=== PATIENT | female | born 1960 | race Caucasian/White ===

== ENCOUNTER → 2017-09-21 | Outpatient (CLI) | payer OTHER, SELFPAY ==
[~2017-09-21] MED LIST: AMBIEN 10 MG TA10 MG PO; AMBIEN 5 MG TABL5 M1 PO; ASPIR 8181 MG PO; ASPIRIN325 PO; AUGMENTIN 875-1 EACH PO; AUGMENTIN 875875 MG PO; CENTRUM SILVER1 EAC4 PO; COLACE100 MG PO; FIBERCON625 M1 PO; IBUPROFEN 600600 M1 PO; MAG-AL PLUS XS30 ML PO; MAGNESIUM500 MG PO; MECLIZINE HCL12.5 MG PO; MILK OF MA2400 MG/10 PO; MIRALAX17 GM PO; MOBIC15 MG PO; MUCINEX TA600 MG/TA2 PO; NEURONTIN250 MG/5 M PER TUBE; NEURONTIN600 MG PO; OXYCODONE HCL 55 MG PO; PERCOCET PO; PHENERGAN 25 MG25 M1 PO; REQUIP 0.25 M0.25 M1 PO; TESSALON PERLE100 MG PO; TRAMADOL 50 MG50 MG PO; TURMERIC500 M2 PO; TYLENOL EXTRA500 MG PO; VERAPAMIL ER180 M1 PO; VISTARIL 25 MG25 M1 PO; VITAMIN B-1100 M1 PO; VITAMIN D1000 UNI2 PO; VITAMINC500 PO; ZOFRAN ODT4 MG PO
== END ==
LOC: M.MRI 16:15
DX: M17.11 Unilateral primary osteoarthritis, right knee (principal); M79.661 Pain in right lower leg; R22.41 Localized swelling, mass and lump, right lower limb; Z96.652 Presence of left artificial knee joint

== ENCOUNTER 2018-08-18 10:33 | Inpatient (IN) | payer OTHER ==
[~2018-08-18] VITALS: Ht 172.7 cm; Wt 127.9 kg
[2018-08-18] VITALS (26 sets, daily range): BP systolic 107–181; BP diastolic 62–105
--- NOTE | ~2018-08-18 | EEG ---
[address] [address] EEG STUDY REPORT Name: LIDA WHITLEY Room: [address] IN M.R.#: [id number] Admission: 08/18/18 Attend Phys: Marcos Moore MD Discharge: Date of : 62 Report #: [id number] THIS REPORT FOR: //name// CC: Marcos Mack DATE OF SERVICE: 08/22/2018 This patient's EEG was done for comparison. EEG was done by placing the electrode by standard 10-20 system of electrode placement. Both referential and sequential montages were used for recording. Background activity in this patient's EEG goes up to about 8 Hz and 30 microvolt. Photic stimulation is unremarkable. No active epileptiform activity was noticed. Triphasic waves appear to have disappeared. IMPRESSION: This patient's EEG continued to demonstrate finding consistent with encephalopathy, but appeared to have somewhat improved since last time. Clinical correlation is recommended. By: 0922 0947Aiden Perez MD /nt
--- NOTE | ~2018-08-18 | EEG ---
[address] [address] EEG STUDY REPORT Name: LIDA WHITLEY Room: [address] IN M.R.#: [id number] Admission: 08/18/18 Attend Phys: Marcos Moore MD Discharge: Date of : 62 Report #: [id number] THIS REPORT FOR: //name// CC: Marcos Mack DATE OF SERVICE: 08/20/2018 This patient is being evaluated for a cardiac arrest. EEG was done by placing the electrodes by standard 10-20 system of electrode placement. Both referential and sequential montages were used for recording. Background activity in this patient's EEG is about 4-5 Hz and 30 microvolts. Triphasic waves, which are frontally predominant is present. Photic stimulation is unremarkable. IMPRESSION: This is a severely abnormal EEG, which would be consistent with a diagnosis of encephalopathy. A well-defined cortical activity is present at the moment and the patient will need serial EEGs to prognosticate. Thank you very much for this referral. By: 1548 1754Pleroy Perez MD /nt
--- NOTE | ~2018-08-18 | CON ---
[address] [address] CONSULTATION Name: GUTIERREZLIDA E Room: [address] IN M.R.#: [id number] Admission: 08/18/18 Attend Phys: Marcos Moore MD Discharge: Date of : 62 Report #: [id number] THIS REPORT FOR: //name// CC: Marcos Mack DATE OF SERVICE: 08/18/2018 PRIMARY CARE PHYSICIAN: Dr. Franco. CHIEF COMPLAINT: Cardiac arrest. HISTORY OF PRESENT ILLNESS: The patient is a 58-year-old female who had a witnessed cardiac arrest at her home. Her who is upstairs heard her fall. 911 was immediately called and bystander CPR was initiated. By the time paramedics arrived, she was noted to be in a pulsus rhythm, ventricular fibrillation, and was cardioverted x1 into a sinus rhythm with judaism of pulse and blood pressure. She was breathing at that time and she was transferred on high flow oxygen and then was intubated when she was not waking up here in the Emergency Room at [facility]. She remained hemodynamically stable, but unresponsive. Her ECG on presentation did not show any dynamic ST-T wave abnormalities. Her and sister were interviewed. The patient has been under a lot of stress over the last week when she was taking care of her family member, whose just . However, other than feeling shortness of breath, she was not having chest pain or pressure and was not having any increasing weakness or fatigue or syncope or presyncope. PAST MEDICAL HISTORY: Significant for remote history of brain tumor resection with residual weakness and fatigue and chronic fibromyalgia, chronic fatigue, irritable bowel syndrome, degenerative joint disease, but she was not treated for diabetes. She is a nonsmoker. There is no documented history of congestive heart failure, cardiac rhythm abnormalities. HOME MEDICATIONS: Included ondansetron p.r.n., benzonatate p.r.n., zolpidem, ropinirole, gabapentin, and meclizine. ALLERGIES: She has allergies to HYDROCODONE with NONCONTRAST DYE. SOCIAL HISTORY: She is nonsmoking, . Does not drink. REVIEW OF SYSTEMS: Not obtainable, but as noted above, the aforementioned symptoms were not present. CHEST: She was not having chest discomfort. [place] [address] CONSULTATION Name: LIDA WHITLEY Room: [address]#: [id number] Admission: 08/18/18 Attend Phys: Marcos Moore MD Discharge: Date of : 62 Report #: [id number]. NEUROLOGIC: She was not having any seizure activities. MUSCULOSKELETAL: She has chronic joint pain. HEMATOLOGIC: No anemia. RENAL: No history of kidney failure. PHYSICAL EXAMINATION: VITAL SIGNS: On judaism, her blood pressure is actually elevated at 181/105. She weighs 230 pounds. Pulse is sinus rhythm, sinus tachycardia, O2 sat on the ventilator is 100%. HEENT: No evidence of trauma. ET tube is secure. Eyes, pupils are unresponsive. NECK: Supple. No jugular venous distention. CARDIOVASCULAR: Regular. I cannot hear a murmur. PULMONARY: Breath sounds are coarse bilaterally. There is no wheezing. ABDOMEN: Distended. It is soft. EXTREMITIES: Distal pulses are intact. Distal extremities are warm. NEUROLOGIC: Are not formally tested as noted above. LABORATORY DATA: Troponin I is 0.26. Glucose 170, BUN 21, sodium 141, potassium 4.1, and chloride is 106. Troponin I is 0.26. BNP is 43. Hemoglobin is 13. CT scan of the brain is pending. X-ray shows ET tube, which terminates over the mid to distal trachea in satisfactory position, borderline enlarged cardiac silhouette, but unchanged from her prior study and no pneumothorax, atelectasis, but no CHF. IMPRESSION: 1. Out of hospital cardiac arrest. 2. Ventricular fibrillation. 3. Respiratory failure. 4. Anoxic brain injury. At this point in time, supportive cardiovascular care will be instituted. Given her age and potential cardiovascular risk factors, I think she should be evaluated with an invasive evaluation. The risks and benefits of this procedure were described to the patient's family in lay terms. They elected to proceed. She will be started on a cooling protocol and Neurology consult will be initiated. Critical care time is 31 minutes. By: 1157 0147Umair Aden MD, FACC /nt
[~2018-08-18 10:33] MED LIST changes: -NEURONTIN250 MG/5 M PER TUBE; +NEURONTIN250 MG/5 M PO
[2018-08-18 11:09] LABS: ABSOLUTE BASOPHILS 0.1 thou/uL (0.0-0.2); ABSOLUTE EOSINOPHILS 0.2 thou/uL (0.0-0.7); ABSOLUTE LYMPHOCYTES 3.8 thou/uL (0.8-5.3); ABSOLUTE MONOCYTES 0.6 thou/uL (0.0-1.2); ABSOLUTE NEUTROPHILS 5.6 thou/uL (1.6-8.1); BASOPHILS 0.7 %; EOSINOPHILS 1.6 %; HEMATOCRIT 40.9 % (37.0-47.0); HEMOGLOBIN 13.2 gm/dL (12.0-15.0); LYMPHOCYTES 36.9 %; MCH 29.1 pg (26.0-34.0); MCHC 32.3 g/dL (28.0-37.0); MCV 90.1 fL (80.0-100.0); MONOCYTES 5.7 %; MPV 7.6 fl. (7.2-11.1); NUCLEATED RBCS 0 /100WBC; PLATELET COUNT* 319 thou/uL (150-400); POLYS 55.1 %; RBC 4.54 mil/uL (4.20-5.00); RDW-CV 14.4 % (10.5-14.5); WBC 10.2 thou/uL (4.0-11.0)
[2018-08-18 11:09] LABS: URINE BILIRUBIN NEGATIVE (Negative); URINE BLOOD TRACE (Negative); URINE CLARITY CLEAR; URINE COLOR YELLOW; URINE GLUCOSE-RANDOM TRACE (Negative); URINE KETONES NEGATIVE (Negative); URINE LEUKOCYTES-REFLEX NEGATIVE (Negative); URINE NITRITE-REFLEX NEGATIVE (Negative); URINE PROTEIN 3+ (Negative); URINE SPECIFIC GRAVITY 1.025 (1.005-1.030); URINE UROBILINOGEN 0.2 E.U./dl (0.2-1.0)
[2018-08-18 11:16] LABS: SQUAMOUS 4-10 Moderate /LPF (0-3)
[2018-08-18 11:21] LABS: APTT 23.5 Seconds (25.0-31.3)
[2018-08-18 11:23] LABS: BACTERIA-REFLEX None Seen /HPF (None Seen); CASTS None Seen /LPF (None Seen); MUCUS >6 Heavy strn/LPF (None Seen); URINE RBC None Seen /HPF (0-2); URINE WBC-REFLEX None Seen /HPF (0-5)
[2018-08-18 11:24] LABS: AMORPHOUS URATES Many /LPF (None Seen)
[2018-08-18 11:29] LABS: POTASSIUM 4.1 mmol/L (3.5-5.1); TROPONIN-I LEVEL 0.26 ng/mL (<0.06)
[2018-08-18 11:32] LABS: ALBUMIN 3.8 g/dL (3.4-5.0); MAGNESIUM 2.1 mg/dL (1.8-2.4); TOTAL BILIRUBIN 0.2 mg/dL (<0.1-1.0); TOTAL PROTEIN 7.1 g/dL (6.4-8.2)
[2018-08-18 14:28] LABS: PCO2 40.3 mmHg (35.0-45.0); pH 7.326 (7.340-7.450)
[2018-08-18 14:33] LABS: PO2 343.9 mmHg (75.0-100.0)
[2018-08-18 14:49] LABS: ANION GAP 10 mmol/L (7-16); BUN 23 mg/dL (7-18); CALCIUM 9.2 mg/dL (8.5-10.1); CHLORIDE 105 mmol/L (98-107); CO2 25 mmol/L (21-32); CREATININE 0.8 mg/dL (0.6-1.3); GLUCOSE 114 mg/dL (70-99); POTASSIUM 4.2 mmol/L (3.5-5.1); SODIUM 140 mmol/L (136-145)
[2018-08-18 14:52] LABS: TROPONIN-I LEVEL 2.96 ng/mL (<0.06)
[2018-08-18 15:33] LABS: CHOLESTEROL 288 mg/dL (<200); HDL CHOLESTEROL 62 mg/dL (>40); LDL CHOLESTEROL 182 mg/dL (<100); SERUM ASSESSMENT Clear; TC:HDL 4.6 Ratio (Not establshd); TRIGLYCERIDE 222 mg/dL (<150); VLDL 44 mg/dL (<40)
[2018-08-18 18:25] LABS: ABSOLUTE LYMPHOCYTES 1.5 thou/uL (0.8-5.3); ABSOLUTE MONOCYTES 0.8 thou/uL (0.0-1.2); ABSOLUTE NEUTROPHILS 11.1 thou/uL (1.6-8.1); BASOPHILS 0.3 %; EOSINOPHILS 0.1 %; HEMATOCRIT 38.8 % (37.0-47.0); HEMOGLOBIN 12.5 gm/dL (12.0-15.0); MCH 28.8 pg (26.0-34.0); MCHC 32.2 g/dL (28.0-37.0); MCV 89.3 fL (80.0-100.0); MONOCYTES 5.9 %; NUCLEATED RBCS 0 /100WBC; PLATELET COUNT* 319 thou/uL (150-400); POLYS 82.7 %; RBC 4.35 mil/uL (4.20-5.00); WBC 13.4 thou/uL (4.0-11.0)
[2018-08-18 18:52] LABS: CALCIUM 8.6 mg/dL (8.5-10.1); CK-MB MASS 8.8 ng/mL (<0.5-3.6); CREATININE 0.8 mg/dL (0.6-1.3); MAGNESIUM 2.1 mg/dL (1.8-2.4); PHOSPHORUS* 3.6 mg/dL (2.5-4.9); POTASSIUM 3.7 mmol/L (3.5-5.1)
[2018-08-18 18:55] LABS: TROPONIN-I LEVEL 2.6 ng/mL (<0.06)
[2018-08-18 19:28] LABS: APTT 23.6 Seconds (25.0-31.3); PROTIME 10.3 Seconds (9.20-11.50)
[2018-08-18 22:54] LABS: HEMATOCRIT 38.6 % (37.0-47.0); HEMOGLOBIN 12.6 gm/dL (12.0-15.0); MCHC 32.7 g/dL (28.0-37.0); MCV 88.5 fL (80.0-100.0); MPV 7.6 fl. (7.2-11.1); NUCLEATED RBCS 0 /100WBC; PLATELET COUNT* 284 thou/uL (150-400); RBC 4.36 mil/uL (4.20-5.00); RDW-CV 13.9 % (10.5-14.5); WBC 11.6 thou/uL (4.0-11.0)
[2018-08-18 23:08] LABS: PROTIME 10.2 Seconds (9.20-11.50)
[2018-08-18 23:20] LABS: CALCIUM 8.7 mg/dL (8.5-10.1); CREATININE 0.6 mg/dL (0.6-1.3); MAGNESIUM 2.1 mg/dL (1.8-2.4); PHOSPHORUS* 3.5 mg/dL (2.5-4.9); POTASSIUM 3.3 mmol/L (3.5-5.1)
[2018-08-18 23:26] LABS: ABSOLUTE LYMPHOCYTES 0.7 thou/uL (0.8-5.3); ABSOLUTE MONOCYTES 0.3 thou/uL (0.0-1.2); ABSOLUTE NEUTROPHILS 10.6 thou/uL (1.6-8.1); PLATELET ESTIMATE ADEQUATE
[2018-08-19] VITALS (59 sets, daily range): BP systolic 92–159; BP diastolic 57–85
[2018-08-19 02:49] LABS: ABSOLUTE BASOPHILS 0.1 thou/uL (0.0-0.2); ABSOLUTE LYMPHOCYTES 1.8 thou/uL (0.8-5.3); ABSOLUTE MONOCYTES 0.4 thou/uL (0.0-1.2); ABSOLUTE NEUTROPHILS 7.5 thou/uL (1.6-8.1); BASOPHILS 0.8 %; EOSINOPHILS 0.2 %; HEMATOCRIT 37.9 % (37.0-47.0); HEMOGLOBIN 12.6 gm/dL (12.0-15.0); LYMPHOCYTES 17.9 %; MCH 29.4 pg (26.0-34.0); MCHC 33.3 g/dL (28.0-37.0); MCV 88.5 fL (80.0-100.0); MONOCYTES 4.5 %; MPV 7.6 fl. (7.2-11.1); NUCLEATED RBCS 0 /100WBC; PLATELET COUNT* 281 thou/uL (150-400); POLYS 76.6 %; RBC 4.29 mil/uL (4.20-5.00); RDW-CV 14.3 % (10.5-14.5); WBC 9.8 thou/uL (4.0-11.0)
[2018-08-19 03:10] LABS: ALBUMIN 3.4 g/dL (3.4-5.0); CALCIUM 8.9 mg/dL (8.5-10.1); CREATININE 0.5 mg/dL (0.6-1.3); TOTAL BILIRUBIN 0.2 mg/dL (<0.1-1.0); TOTAL PROTEIN 6.4 g/dL (6.4-8.2)
[2018-08-19 03:30] LABS: TROPONIN-I LEVEL 0.87 ng/mL (<0.06)
[2018-08-19 04:21] LABS: CK-MB MASS 9.3 ng/mL (<0.5-3.6); MAGNESIUM 2.1 mg/dL (1.8-2.4); PHOSPHORUS* 2.9 mg/dL (2.5-4.9)
[2018-08-19 04:27] LABS: TROPONIN-I LEVEL 0.86 ng/mL (<0.06)
[2018-08-19 05:14] LABS: APTT 25.7 Seconds (25.0-31.3); PROTIME 10.1 Seconds (9.20-11.50)
[2018-08-19] MEDS ORDERED: BUTALB-APAP-CA1 EACH PO (07:03)
[2018-08-19] MEDS ORDERED: CYMBALTA60 MG PO (07:04)
[2018-08-19] MEDS ORDERED: OMEPRAZOLE40 MG PO (07:05)
[2018-08-19] MEDS ORDERED: ULTRAM 50MG TAB50 MG PO (07:06)
[2018-08-19] MEDS ORDERED: ZANAFLEX4 MG PO (07:07)
[2018-08-19] MEDS ORDERED: PHENERGAN 25 MG25 M1 PO ×2 (08:17→08:19)
--- NOTE | 2018-08-19 14:08 | EKG ---
[place] [address] ELECTROCARDIOGRAM REPORT Name: GUTIERREZLIDA E Room: [address] IN M.R.#: [id number] Admission: 08/18/18 Attend Phys: Marcos Moore MD Discharge: Date of : 62 Report #: [id number] THIS REPORT FOR: //name// [facility] ED Test Date: 2018-08-18 Test Time: 10:36:24 Pat Name: LIDA WHITLEY Department: Room: [facility] Gender: F Peanut Vendor: GILBERTO : 1960 Requested By: Beau Payan Order Number: [id number] MD: Umair Aden Measurements Intervals [place] Rate: 106 P: 81 KS: 145 QRS: 13 QRSD: 91 T: 40 QT: 364 QTc: 484 Interpretive Statements Sinus tachycardia Minimal ST depression, anterolateral leads Baseline wander in lead(s) I,III,aVR,aVL,V3,V4,V5,V6 Compared to ECG 04/10/2017 10:09:34 ST (T wave) deviation now present Sinus rhythm no longer present Electronically Signed On 08-19-2018 14:08:34 ON SITE NURSE by Umair Aden [email or web address] <ELECTRONICALLY SIGNED> By: Umair Aden MD, [facility] 08/19/18 1408 1036 1036 Umair Aden MD, [facility] /EPI
--- NOTE | 2018-08-19 16:29 | CARD ---
[facility] [address] [place] [address] CARDIAC CATH REPORT Name: LIDA WHITLEY Room: [address] IN .R.#: [id number] Admission: 08/18/18 Attend Phys: Marcos Moore MD Discharge: Date of : 62 Report #: [id number] THIS REPORT FOR: //name// APPROVED REPORT Study performed: 08/18/2018 11:38:35 Patient Details Patient Status: ED Room #: The patient is a 58 year-old female Event Personnel Art Mack Jewel Bearing Maker, Mariaelena Kate RN Prescriptionist, Kristi Torres RN Monitor, Vladimir Ritchie (R) Scrub Procedures Performed Left Heart Cath w/or w/o Coronaries Indication Arrhythmia, Out of hospital arrest. Risk Factors HypercholesterolemiaPhysical Activity, Hypertension Procedure Narrative The patient was brought emergently to the Cardiac Catheterization Laboratory and was prepped and draped in a sterile manner. The right femoral was infiltrated with 2% Lidocaine subcutaneous anesthesia. A [place]wood Sheath 4frX 10cm sheath was inserted into the right femoral artery. Coronary angiography was performed using coronary diagnostic catheters. The right coronary system was accessed and visualized with a JR4 catheter. The left coronary system was accessed and visualized with a JL4 catheter. The left ventricle was accessed and visualized with a PIGTAIL catheter. The patient tolerated the procedure well and there were no complications associated with the procedure. Dose: 854 mGy Contrast Type and Amount: Visipaque 120 ml Coronary Angiography The patient's coronary anatomy is right dominant. Diagnostic Cath Left Main This is a patent vessel, with no flow-limiting lesions. [address] [address] CARDIAC CATH REPORT Name: LIDA WHITLEY Room: [address] IN [facility]#: [id number] Admission: 08/18/18 Attend Phys: Marcos Moore MD Discharge: Date of : 62 Report #: [id number] LAD The proximal segment is a moderate to large size caliber vessel, patent with no flow-limiting lesions. The LAD tapers down to a moderate size caliber vessel in the midsegment, with no flow-limiting lesions. The distal LAD is a small-caliber vessel with moderate diffuse disease. Medical therapy is recommended. Diagonal 1 This is a small-caliber vessel, with no flow-limiting lesions. Diagonal 2 This is a small-caliber vessel, with no flow-limiting lesions. Circumflex This is a moderate size caliber vessel, supplies 2 obtuse marginal arteries. OM1 This is a moderate size caliber vessel, patent with no flow-limiting lesions. At the distal segment, it divides into 2 branches. OM2 This is a patent vessel, with no flow-limiting lesions. Right Coronary This is a dominant vessel, with mild disease in the midsegment. R PDA This is a patent vessel, with no flow-limiting lesions. RPLV This is a patent vessel, with no flow-limiting lesions. Left Ventriculography The left ventricle is normal in size with borderline contractility. The left ventricular ejection fraction is estimated to be 45-50%. There is mild hypokinesis of the mid to basal inferior segment. Hemodynamics The aortic pressure is 148/97 mmHg with a mean of 126 mmHg. The left ventricular pressure is 156/13 mmHg with a mean of mmHg. The left ventricular end diastolic pressure is 19 mmHg. Conclusion 1. There is mild to moderate disease in the distal LAD and mid RCA. 2. Right dominant system. 3. Low-normal versus mild LV dysfunction, EF 45-50%. 4. Recommend aggressive risk factor management. <ELECTRONICALLY SIGNED> By: Art Mack MD 08/19/18 1628 1628 1628Art Mack MD /INF
[2018-08-19 17:37] LABS: ABSOLUTE EOSINOPHILS 0.1 thou/uL (0.0-0.7); ABSOLUTE LYMPHOCYTES 1.4 thou/uL (0.8-5.3); ABSOLUTE MONOCYTES 0.4 thou/uL (0.0-1.2); ABSOLUTE NEUTROPHILS 5.4 thou/uL (1.6-8.1); BASOPHILS 0.4 %; EOSINOPHILS 1.2 %; HEMOGLOBIN 12.3 gm/dL (12.0-15.0); LYMPHOCYTES 18.9 %; MCH 29.3 pg (26.0-34.0); MCHC 33.2 g/dL (28.0-37.0); MCV 88.4 fL (80.0-100.0); MONOCYTES 5.5 %; MPV 7.8 fl. (7.2-11.1); NUCLEATED RBCS 0 /100WBC; PLATELET COUNT* 269 thou/uL (150-400); RBC 4.19 mil/uL (4.20-5.00); RDW-CV 14.8 % (10.5-14.5); WBC 7.2 thou/uL (4.0-11.0)
[2018-08-19 17:58] LABS: CALCIUM 8.9 mg/dL (8.5-10.1); CREATININE 0.6 mg/dL (0.6-1.3); MAGNESIUM 2.1 mg/dL (1.8-2.4); PHOSPHORUS* 2.8 mg/dL (2.5-4.9); POTASSIUM 4.2 mmol/L (3.5-5.1)
[2018-08-19 18:11] LABS: PROTIME 10.2 Seconds (9.20-11.50)
[2018-08-19 18:13] LABS: APTT 52.9 Seconds (25.0-31.3)
[2018-08-20] VITALS: BP 120/72
[2018-08-20 00:15] VITALS: BP 126/73
[2018-08-20 00:30] VITALS: BP 122/70
[2018-08-20 00:45] VITALS: BP 121/73
[2018-08-20 01:00] VITALS: BP 120/72
[2018-08-20 06:30] LABS: ABSOLUTE EOSINOPHILS 0.1 thou/uL (0.0-0.7); ABSOLUTE MONOCYTES 0.5 thou/uL (0.0-1.2); ABSOLUTE NEUTROPHILS 7.2 thou/uL (1.6-8.1); BASOPHILS 0.5 %; EOSINOPHILS 1.5 %; HEMATOCRIT 38.2 % (37.0-47.0); HEMOGLOBIN 12.6 gm/dL (12.0-15.0); LYMPHOCYTES 20.1 %; MCH 28.9 pg (26.0-34.0); MCHC 32.8 g/dL (28.0-37.0); MONOCYTES 4.9 %; MPV 8.1 fl. (7.2-11.1); NUCLEATED RBCS 0 /100WBC; PLATELET COUNT* 317 thou/uL (150-400); RBC 4.34 mil/uL (4.20-5.00); RDW-CV 14.8 % (10.5-14.5); WBC 9.8 thou/uL (4.0-11.0)
[2018-08-20 06:35] LABS: ALBUMIN 3.3 g/dL (3.4-5.0); CALCIUM 8.9 mg/dL (8.5-10.1); CREATININE 0.7 mg/dL (0.6-1.3); POTASSIUM 3.8 mmol/L (3.5-5.1); TOTAL BILIRUBIN 0.2 mg/dL (<0.1-1.0); TOTAL PROTEIN 6.4 g/dL (6.4-8.2)
--- NOTE | 2018-08-20 12:51 | CON ---
[facility] [address] [place] [address] CONSULTATION Name: LIDA WHITLEY Room: [address] IN M.R.#: [id number] Admission: 08/18/18 Attend Phys: Marcos Moore MD Discharge: Date of : 62 Report #: [id number] THIS REPORT FOR: //name// CC: Marcos Mack HISTORY OF PRESENT ILLNESS: The patient is a 58-year-old female who was in her home when her heard her fall to the ground. She was unresponsive. He initiated CPR immediately. When EMS arrived, the patient was in ventricular fibrillation. The patient was brought to the Emergency Room. She is now here in the ICU and is on the ventilator. There is concern for pulmonary embolus and consideration is being given to heparinizing the patient and taking her for a CT scan of the chest tomorrow. The patient is currently on a cooling protocol and on some light sedation, so a CT of the chest will be done tomorrow. The patient is my office patient. She has a history of acoustic neuroma and migraine headache. I was able to access my office records. The last time she was seen in my office was in 04/2017. In addition to being seen for headache for which she was treated with Fioricet, she also had fibromyalgia and was treated with duloxetine for that. In regards to the acoustic neuroma, this had been removed in the past. This acoustic neuroma was on the right side. PAST MEDICAL HISTORY: Acoustic neuroma, migraine headache, fibromyalgia, trigeminal neuralgia and gastroesophageal reflux. PAST SURGICAL HISTORY: Removal of a right acoustic neuroma, left knee surgery and bilateral carpal tunnel release. MEDICATIONS: As per the chart. ALLERGIES: None. NEUROLOGIC EXAMINATION: Cranial nerves: Pupils are pinpoint and unreactive. Oculocephalic and corneal reflexes are absent. There are no spontaneous movements of the extremities. Plantar responses are mute. IMPRESSION: The patient is currently on the cooling protocol and on some sedation. I have ordered an electroencephalogram for Monday morning and I have also ordered an MRI of the head, which can be done when she is more stable. At this point, there is concern for a pulmonary embolus, so the patient will be beginning heparin. Once she has warmed to normal body temperature she will be going for a CT scan, which will probably be on Monday as well. I reviewed my office notes and the patient had not been seen by me since 04/2017. At that point, she was seen for chronic headache, [place] [address] CONSULTATION Name: LIDA WHITLEY Room: [address]#: [id number] Admission: 08/18/18 Attend Phys: Marcos Moore MD Discharge: Date of : 62 Report #: [id number] trigeminal neuralgia. I had discussed with her the use of [id number] medication, which she had been taking too much of and had prescribed duloxetine [address] Perez will be following the patient as of Monday. <ELECTRONICALLY SIGNED> By: Carissa Goodson DO 08/20/18 1251 1151 0516Carissa Goodson DO /nt
--- NOTE | 2018-08-20 13:36 | 2DMMODE ---
[address] [address] D/M-MODE ECHOCARDIOGRAM Name: LIDA WHITLEY Room: [address] IN M.R.#: [id number] Admission: 08/18/18 Attend Phys: Marcos Moore, Discharge: Date of : 62 Date of Service: 08/20/18 1336 Report #: [id number] THIS REPORT FOR: //name// APPROVED REPORT Study performed: 08/20/2018 09:35:33 EXAM: Comprehensive 2D, Doppler, and color-flow Echocardiogram Patient Location: Bedside BSA: 2.36 HR: 73 bpm BP: 188/96 mmHg Other Information Study Quality: Fair Indications Chest Pain 2D Dimensions IVSd: 11.49 (7-11mm) LVOT Diam: 17.24 (18-24mm) LVDd: 38.07 mm PWd: 10.41 (7-11mm) Ascending Ao: 30.65 (22-36mm) LVDs: 28.08 (25-40mm) Aortic Root: 30.64 mm Volumes Left Atrial Volume (Systole) LA ESV Index: 11.40 mL/m2 Aortic Valve AoV Peak Eliu.: 1.61 m/s AO Peak Gr.: 10.33 mmHg LVOT Max P.88 mmHg AO Mean Gr.: 6.03 mmHg LVOT Mean P.61 mmHg LVOT Max V: 1.10 m/s AO V2 VTI: 25.03 cm LVOT Mean V: 0.76 m/s MIGUEL (VTI): 1.81 cm2 LVOT V1 VTI: 19.41 cm Mitral Valve E/A Ratio: 0.88 MV Decel. Time: 119.14 ms MV E Max Eliu.: 0.78 m/s MV PHT: 34.55 ms MVA (PHT): 6.37 [place]2 [place] [address] 2 D/M-MODE ECHOCARDIOGRAM Name: LIDA WHITLEY Room: [address] IN [facility].#: [id number] Admission: 08/18/18 Attend Phys: Marcos Moore, Discharge: Date of : 62 Date of Service: 08/20/18 1336 Report #: [id number] TDI E/Lateral E': 6.00 E/Medial E': 5.20 Medial E' Eliu.: 0.15 m/s Lateral E' Eliu.: 0.13 m/s Pulmonary Valve PV Peak Eliu.: 1.36 m/s PV Peak Gr.: 7.36 mmHg Tricuspid Valve RAP Estimate: 5.00 mmHg TR Peak Gr.: 29.77 mmHg RVSP: 34.77 mmHg PA Pressure: 34.77 mmHg Left Ventricle The left ventricle is normal size. There is normal LV segmental wall motion. There is normal left ventricular wall thickness Left ventricular systolic function is hyperdynamic. LVEF is 65-70%. Right Ventricle The right ventricle is normal size. The right ventricular systolic function is normal. Atria The left atrium size is normal. The right atrium size is normal. Aortic Valve The aortic valve is normal in structure. No aortic regurgitation is present. There is no aortic valvular stenosis. Mitral Valve Mild mitral annular calcification. Trace mitral regurgitation. No evidence of mitral valve stenosis. Tricuspid Valve The tricuspid valve is normal in structure. Trace tricuspid regurgitation. Pulmonic Valve The pulmonary valve is normal in structure. There is no pulmonic valvular regurgitation. Great Vessels The aortic root is normal in size. IVC [place] [address] 2 D/M-MODE ECHOCARDIOGRAM Name: LIDA WHITLEY Room: [address] IN [facility]#: [id number] Admission: 08/18/18 Attend Phys: Marcos Moore, Discharge: Date of : 62 Date of Service: 08/20/18 1336 Report #: [id number] Pericardium There is no pericardial effusion. <Conclusion> The left ventricle is normal size. There is normal left ventricular wall thickness Left ventricular systolic function is hyperdynamic. LVEF is 65-70%. The right ventricle is normal size. The right ventricular systolic function is normal. The left atrium size is normal. The aortic valve is normal in structure. Mild mitral annular calcification. Trace mitral regurgitation. The tricuspid valve is normal in structure. There is no pericardial effusion. There is normal LV segmental wall motion. <ELECTRONICALLY SIGNED> By: Ryan Bruce MD, FACC 08/20/18 1336 1336 1336 Ryan Bruce MD, FACC /INF
[2018-08-21] VITALS (23 sets, daily range): BP systolic 86–156; BP diastolic 45–84
[2018-08-21 05:27] LABS: HEMATOCRIT 35.6 % (37.0-47.0); HEMOGLOBIN 11.5 gm/dL (12.0-15.0); MCH 28.9 pg (26.0-34.0); MCHC 32.4 g/dL (28.0-37.0); MCV 89.1 fL (80.0-100.0); NUCLEATED RBCS 0 /100WBC; PLATELET COUNT* 305 thou/uL (150-400); RDW-CV 14.9 % (10.5-14.5); WBC 12.5 thou/uL (4.0-11.0)
[2018-08-21 05:37] LABS: ALBUMIN 2.9 g/dL (3.4-5.0); CALCIUM 8.9 mg/dL (8.5-10.1); CREATININE 0.8 mg/dL (0.6-1.3); MAGNESIUM 1.9 mg/dL (1.8-2.4); POTASSIUM 4.5 mmol/L (3.5-5.1); TOTAL BILIRUBIN 0.2 mg/dL (<0.1-1.0); TOTAL PROTEIN 6.3 g/dL (6.4-8.2)
[2018-08-21 05:46] LABS: PHOSPHORUS* 4.6 mg/dL (2.5-4.9)
[2018-08-21 06:46] LABS: ABSOLUTE LYMPHOCYTES 0.5 thou/uL (0.8-5.3); ABSOLUTE MONOCYTES 0.1 thou/uL (0.0-1.2); ABSOLUTE NEUTROPHILS 11.9 thou/uL (1.6-8.1); ANISOCYTOSIS 1+; PLATELET ESTIMATE ADEQUATE; POIKILOCYTOSIS 1+
[2018-08-22] VITALS (20 sets, daily range): BP systolic 141–177; BP diastolic 80–103
[2018-08-22 04:42] LABS: ABSOLUTE BASOPHILS 0.1 thou/uL (0.0-0.2); ABSOLUTE LYMPHOCYTES 1.4 thou/uL (0.8-5.3); ABSOLUTE MONOCYTES 0.6 thou/uL (0.0-1.2); ABSOLUTE NEUTROPHILS 11.4 thou/uL (1.6-8.1); BASOPHILS 0.8 %; HEMATOCRIT 36.7 % (37.0-47.0); HEMOGLOBIN 12.1 gm/dL (12.0-15.0); LYMPHOCYTES 10.5 %; MCH 29.4 pg (26.0-34.0); MCHC 32.9 g/dL (28.0-37.0); MCV 89.3 fL (80.0-100.0); MONOCYTES 4.4 %; MPV 7.9 fl. (7.2-11.1); NUCLEATED RBCS 0 /100WBC; PLATELET COUNT* 307 thou/uL (150-400); POLYS 84.3 %; RBC 4.11 mil/uL (4.20-5.00); WBC 13.5 thou/uL (4.0-11.0)
[2018-08-22 05:20] LABS: ALBUMIN 3.1 g/dL (3.4-5.0); CALCIUM 8.9 mg/dL (8.5-10.1); CREATININE 0.8 mg/dL (0.6-1.3); MAGNESIUM 2.5 mg/dL (1.8-2.4); TOTAL BILIRUBIN 0.4 mg/dL (<0.1-1.0); TOTAL PROTEIN 6.9 g/dL (6.4-8.2)
--- NOTE | 2018-08-22 07:33 | CON ---
[address] [address] CONSULTATION Name: GUTIERREZLIDA Chase Room: [address] IN M.R.#: [id number] Admission: 08/18/18 Attend Phys: Marcos Moore MD Discharge: Date of : 62 Report #: [id number] THIS REPORT FOR: //name// CC: Marcos Mack DATE OF SERVICE: 08/19/2018 NEW PATIENT EVALUATION REASON FOR CONSULTATION: Acute respiratory failure, code ICE post arrest. HISTORY OF PRESENT ILLNESS: The patient was brought to the ED after she was unresponsive. She is 58 years old and was found to be pulseless, was not breathing. Family started chest compression. EMS arrived and she was found to be pulseless and had ventricular fibrillation. Subsequently, she was shocked and transferred for further care. EMS reports downtime from the records 5-10 minutes. According to the family who was available at the bedside, the patient did not have any change recently. No chest pain. Had history of intermittent dizziness. Currently, she is on code ICE. She had cardiac catheterization done. She is currently intubated with 35% FiO2. PAST MEDICAL HISTORY: Remote history of brain tumor, post resection; chronic pain; irritable bowel and degenerative joint disease. SOCIAL HISTORY: Nonsmoker, no alcohol. REVIEW OF SYSTEMS: As above, history of intermittent dizziness, history of hip pain, taking oxycodone 3-4 times a week per family. Otherwise, family denies any previous history of chest pain. As above, otherwise limited, obtained from family, records and nursing and physicians. HOME MEDICATIONS: Reviewed, including ropinirole, gabapentin and Ambien. ALLERGIES: HYDROCODONE. PHYSICAL EXAMINATION: GENERAL: On examination, the patient is sedated. She is on . She is on Versed and propofol. VITAL SIGNS: She has been afebrile since admission, currently hypothermic, with the hypothermia protocol. Pulse is 61, respiratory rate is riding the vent and blood pressure is 103/67. HEAD AND NECK: Neck is supple. Oral mucosa clear. Eyes anicteric. CHEST: Equal and clear to auscultation. CARDIOVASCULAR: Regular [place] [address] CONSULTATION Name: LIDA WHITLEY Room: [address] IN [facility]#: [id number] Admission: 08/18/18 Attend Phys: Marcos Moore MD Discharge: Date of : 62 Report #: [id number] ABDOMEN: Soft, nontender. EXTREMITIES: No edema. LABORATORY DATA: Arterial blood gas, pH of 7.3, pCO2 of 40 and pO2 of 343, this is on 100% tune up mechanic, tidal volume of 550, PEEP of 5 and rate of 16. ASSESSMENT AND PLAN: 1. Cardiac arrest, on code ICE. The patient underwent cardiac catheterization. Her troponin was elevated at 0.86. Lactic acid was 1.4. Creatinine 0.5. 2. Acute respiratory failure. We will await for the cardiac catheterization to be weaned and then we will proceed with weaning trial. I discussed with nursing at this time to wean Versed and the patient may need intermittent fentanyl, with a history of previous pain. Critical care time taking care of the patient was 40 minutes. <ELECTRONICALLY SIGNED> By: Vladimir Goldstein MD 08/22/18 0733 1020 2317Asem Sin Guerrero MD /nt
[2018-08-22 15:34] LABS: BE -1.6 mmol/L (-2 to +3); PCO2 38.9 mmHg (35.0-45.0); PO2 108.6 mmHg (75.0-100.0); pH 7.391 (7.340-7.450)
[2018-08-23] VITALS (13 sets, daily range): BP systolic 135–181; BP diastolic 70–93
[2018-08-23 03:53] LABS: HEMATOCRIT 34.7 % (37.0-47.0); HEMOGLOBIN 11.4 gm/dL (12.0-15.0); MCH 29.1 pg (26.0-34.0); MCHC 32.8 g/dL (28.0-37.0); MCV 88.7 fL (80.0-100.0); MPV 7.8 fl. (7.2-11.1); RBC 3.91 mil/uL (4.20-5.00); RDW-CV 14.2 % (10.5-14.5); WBC 11.4 thou/uL (4.0-11.0)
[2018-08-23 04:10] LABS: CALCIUM 8.8 mg/dL (8.5-10.1); CREATININE 0.7 mg/dL (0.6-1.3); MAGNESIUM 2.4 mg/dL (1.8-2.4)
[2018-08-23 04:11] LABS: POTASSIUM 3.5 mmol/L (3.5-5.1)
[2018-08-23 06:29] LABS: PCO2 46.4 mmHg (35.0-45.0)
[2018-08-23 06:31] LABS: PO2 143.4 mmHg (75.0-100.0)
[2018-08-23 12:10] LABS: BE 0.6 mmol/L (-2 to +3); PCO2 38.7 mmHg (35.0-45.0); pH 7.426 (7.340-7.450)
[2018-08-23 12:12] LABS: PO2 138.5 mmHg (75.0-100.0)
[2018-08-24] VITALS (9 sets, daily range): BP systolic 129–170; BP diastolic 50–91
[2018-08-24 04:20] LABS: HEMATOCRIT 33.3 % (37.0-47.0); HEMOGLOBIN 10.9 gm/dL (12.0-15.0); MCHC 32.7 g/dL (28.0-37.0); MCV 88.7 fL (80.0-100.0); MPV 7.5 fl. (7.2-11.1); RBC 3.75 mil/uL (4.20-5.00); RDW-CV 14.1 % (10.5-14.5); WBC 12.8 thou/uL (4.0-11.0)
[2018-08-24 04:28] LABS: CALCIUM 8.5 mg/dL (8.5-10.1); CREATININE 0.6 mg/dL (0.6-1.3); MAGNESIUM 2.1 mg/dL (1.8-2.4); POTASSIUM 3.2 mmol/L (3.5-5.1)
[2018-08-25 04:00] VITALS: BP 139/79
[2018-08-25 05:21] LABS: HEMATOCRIT 33.8 % (37.0-47.0); HEMOGLOBIN 11.2 gm/dL (12.0-15.0); MCH 29.4 pg (26.0-34.0); MCHC 33.3 g/dL (28.0-37.0); MCV 88.3 fL (80.0-100.0); MPV 7.7 fl. (7.2-11.1); RBC 3.83 mil/uL (4.20-5.00); WBC 12.3 thou/uL (4.0-11.0)
[2018-08-25 06:01] LABS: ALBUMIN 3.1 g/dL (3.4-5.0); CALCIUM 8.9 mg/dL (8.5-10.1); CREATININE 0.6 mg/dL (0.6-1.3); POTASSIUM 3.2 mmol/L (3.5-5.1); TOTAL BILIRUBIN 0.4 mg/dL (<0.1-1.0); TOTAL PROTEIN 6.4 g/dL (6.4-8.2)
[2018-08-25 08:00] VITALS: BP 152/90
[2018-08-25 12:00] VITALS: BP 155/80
[2018-08-25 16:06] VITALS: BP 153/77
[2018-08-25 20:00] VITALS: BP 142/71
[2018-08-26] VITALS: BP 169/92
[2018-08-26 04:00] VITALS: BP 147/81
[2018-08-26 04:57] LABS: HEMATOCRIT 34.2 % (37.0-47.0); HEMOGLOBIN 11.3 gm/dL (12.0-15.0); MCH 28.9 pg (26.0-34.0); MCHC 32.9 g/dL (28.0-37.0); MPV 7.5 fl. (7.2-11.1); RBC 3.89 mil/uL (4.20-5.00); RDW-CV 14.1 % (10.5-14.5); WBC 13.5 thou/uL (4.0-11.0)
[2018-08-26 05:17] LABS: CALCIUM 8.6 mg/dL (8.5-10.1); CREATININE 0.7 mg/dL (0.6-1.3); MAGNESIUM 2.1 mg/dL (1.8-2.4); POTASSIUM 3.2 mmol/L (3.5-5.1); TOTAL BILIRUBIN 0.5 mg/dL (<0.1-1.0); TOTAL PROTEIN 6.4 g/dL (6.4-8.2)
[2018-08-26 08:00] VITALS: BP 147/81; BP 149/82
[2018-08-26 12:01] VITALS: BP 172/93
[2018-08-26] MEDS ORDERED: AMOXIL 875 MG875 M1 PO (14:25)
[2018-08-26] MEDS ORDERED: LISINOPRIL5 MG PO (14:26)
[2018-08-26] MEDS ORDERED: COREG6.25 MG PO (14:29)
[2018-08-26] MEDS ORDERED: ASPIR-TRIN325 MG PO (14:35)
[2018-08-26] MEDS ORDERED: ATORVASTATIN CA40 MG PO (14:38)
[2018-08-26] MEDS ORDERED: MIRALAX17 GM PO (15:19)
[2018-08-26] MEDS ORDERED: IBUPROFEN 600600 M1 PO (15:22)
[2018-08-26 15:56] VITALS: BP 172/93
[2018-08-26 16:25] VITALS: BP 172/93
[2018-08-26] MEDS ORDERED: COLACE100 MG PO (16:54)
--- NOTE | 2018-08-27 07:56 | CON ---
[facility] [address] [place] [address] CONSULTATION Name: GUTIERREZLIDA Stone Room: [address] M.R.#: [id number] Admission: 08/18/18 Attend Phys: Marcos Moore MD Discharge: 08/26/18 Date of : 62 Report #: [id number] THIS REPORT FOR: //name// CC: Marcos Mack DATE OF SERVICE: 08/24/2018 TYPE OF REPORT: Infectious disease consultation. ATTENDING PHYSICIAN: Cyrus Del Valle M.D. REASON FOR EVALUATION: Aspiration pneumonitis. HISTORY OF PRESENT ILLNESS: Chart reviewed, the patient examined. This is a 58-year-old, in extremis, presented to the Emergency Room post-cardiopulmonary arrest on 08/19/2018 and required emergent intubation. She was in Intensive Care Unit for a suspicion of aspiration pneumonitis. She was placed on empiric therapy. Blood cultures were collected, although there was no sputum, it was far more sterile. She had developed bilateral lower lobe atelectasis versus infiltrates and concern about aspiration. She eventually was weaned off mechanical ventilatory support. She is now on 2 liters oxygen per nasal cannula. She has a persistent nonproductive cough. She has generally markedly improved mental status. She has had some low-grade temperature elevations in the 99-100 range. Initially was on piperacillin-tazobactam. This was switched to Unasyn over the course of the last 24-36 hours. ALLERGIES: To HYDROCODONE. CURRENT MEDICATIONS: Include phenazopyridine, methylprednisolone, Unasyn, atorvastatin, carvedilol, aspirin, enoxaparin and pantoprazole. PAST MEDICAL HISTORY: History of brain surgery, renal lithiasis, irritable bowel syndrome, fibromyalgia, chronic fatigue, vertigo, history of migraines, Kan's palsy, status post carpal tunnel surgery, as well as arthroscopic knee surgery. SOCIAL HISTORY: Nonsmoker. No ethanol. FAMILY HISTORY: Noncontributory. REVIEW OF SYSTEMS: She denies any significant gastrointestinal related complaints at this point. No nausea or diarrhea, otherwise unremarkable. A 10-point review of systems otherwise noted [place] [address] CONSULTATION Name: LIDA WHITLEY Room: [address]#: [id number] Admission: 08/18/18 Attend Phys: Marcos Moore MD Discharge: 08/26/18 Date of : 62 Report #: [id number] PHYSICAL EXAMINATION: GENERAL: She is alert and cooperative. She has some mild delay in her responses. She appears to be generally oriented, appears to be in kpju-ny-fuoieobr distress. VITAL SIGNS: Temperature 99.3, pulse 84, respirations 13, blood pressure 153/66. HEENT: Normocephalic. Extraocular muscles intact. NECK: Supple. LUNGS: Few scattered basilar crackles. HEART: Regular. I do not appreciate a murmur. ABDOMEN: Mildly distended, soft, nontender. Distal lower extremities have trace edema. GENITOURINARY: Deferred. RECTAL: Deferred. LABORATORY DATA: Most recent electrolytes: Sodium 143, potassium 3.2, chloride 108, bicarbonate is 28, anion gap of 7, BUN and creatinine 29 and 0.6, glucose 97. Estimated GFR 103. CBC: White count is 12.8, H and H 10.9 and 33.3 and platelets of 308. Blood cultures collected on the 2nd are sterile thus far. Most recent ABG from yesterday pH 7.426, pCO2 of 38.7, pO2 of 138.5 on 4 liters nasal cannula. RADIOLOGICAL DATA: Chest x-ray, basilar atelectasis versus infiltrate, left greater than right. ASSESSMENT: Pneumonitis in the setting of post-cardiopulmonary arrest. She has actually made a remarkable recovery. She has had some low-grade temperature elevations. It is really difficult to know if this is indeed due to infectious cause. She is on Unasyn. Seemingly parameters show improvement. We will continue this. For the next 24-48 hours if she does clinically increase her activity, try to wean off support. We will monitor expectantly. <ELECTRONICALLY SIGNED> By: Hernandez Fonseca MD 08/27/18 0756 1319 [id number] Fonseca MD /nt
== END 2018-08-26 16:30 | disposition home health service (06) | DRG 870 ==
LOC: M.ERS 10:33 → M.TBA-ER 11:28 → M.ICU 11:28 → M.TBA-CV 11:52 → M.ICU 12:06 → M.2W 08-24 13:56
PROVIDERS: Emergency Medicine Emergency Medical Services; Family Medicine; Internal Medicine; Internal Medicine Critical Care Medicine; Internal Medicine Pulmonary Disease; ADMIT Internal Medicine
PROC: 0BH17EZ Insertion of Endotracheal Airway into Trachea, Via Natural or Artificial Opening (ICD-10-PCS; principal; 2018-08-18)
PROC: 5A1955Z Respiratory Ventilation, Greater than 96 Consecutive Hours (ICD-10-PCS; principal; 2018-08-18)
PROC: B2151ZZ Fluoroscopy of Left Heart using Low Osmolar Contrast (ICD-10-PCS; 2018-08-19)
PROC: 4A023N7 Measurement of Cardiac Sampling and Pressure, Left Heart, Percutaneous Approach (ICD-10-PCS; 2018-08-19)
PROC: B2111ZZ Fluoroscopy of Multiple Coronary Arteries using Low Osmolar Contrast (ICD-10-PCS; 2018-08-19)
PROC: 02HV33Z Insertion of Infusion Device into Superior Vena Cava, Percutaneous Approach (ICD-10-PCS; 2018-08-21)
DX: A41.9 Sepsis, unspecified organism (principal); J96.01 Acute respiratory failure with hypoxia; J69.0 Pneumonitis due to inhalation of food and vomit; I46.9 Cardiac arrest, cause unspecified; I49.01 Ventricular fibrillation; I21.4 Non-ST elevation (NSTEMI) myocardial infarction; G93.1 Anoxic brain damage, not elsewhere classified; J98.11 Atelectasis; Z68.41 Body mass index [BMI] 40.0-44.9, adult; Z96.652 Presence of left artificial knee joint; M79.7 Fibromyalgia; M19.90 Unspecified osteoarthritis, unspecified site; G43.909 Migraine, unspecified, not intractable, without status migrainosus; K21.9 Gastro-esophageal reflux disease without esophagitis; I25.10 Atherosclerotic heart disease of native coronary artery without angina pectoris; I10 Essential (primary) hypertension; E87.6 Hypokalemia; E66.01 Morbid (severe) obesity due to excess calories; D64.9 Anemia, unspecified; H70.90 Unspecified mastoiditis, unspecified ear; G31.84 Mild cognitive impairment of uncertain or unknown etiology; M50.322 Other cervical disc degeneration at C5-C6 level; G47.33 Obstructive sleep apnea (adult) (pediatric); E78.5 Hyperlipidemia, unspecified; G62.9 Polyneuropathy, unspecified; K58.9 Irritable bowel syndrome, unspecified; Z87.442 Personal history of urinary calculi; Z79.899 Other long term (current) drug therapy; Z88.8 Allergy status to other drugs, medicaments and biological substances

== ENCOUNTER → 2018-12-04 | Outpatient (CLI) | payer OTHER ==
[~2018-12-04] MED LIST changes: +AMOXIL 875 MG875 M1 PO; +ASPIR-TRIN325 MG PO; +ATORVASTATIN CA40 MG PO; +BUTALB-APAP-CA1 EACH PO; +COREG6.25 MG PO; +CYMBALTA60 MG PO; +LISINOPRIL5 MG PO; +OMEPRAZOLE40 MG PO; +ULTRAM 50MG TAB50 MG PO; +ZANAFLEX4 MG PO
== END ==
LOC: M.ULTRA 07:30
DX: R16.0 Hepatomegaly, not elsewhere classified (principal)

== ENCOUNTER → 2019-01-11 | Day surgery (SDC) | payer OTHER ==
[~2019-01-11] MED LIST changes: +ANTIVERT25 MG PO; +CLARITIN10 MG PO; +EXCEDRIN CAPLE1 EACH PO; +LIPITOR40 MG PO; +NEURONTIN 300300 M1 PO; +TOPAMAX 25 MG T25 M1 PO; +TYLENOL325 MG PO
--- NOTE | ~2019-01-11 | PROC ---
[address] [address] PROCEDURE REPORT Name: LIDA WHITLEY Room: [facility] M.R.#: [id number] Admission: 01/11/19 Attend Phys: Jewels Lemon MD Discharge: Date of : 62 Report #: [id number] THIS REPORT FOR: //name// For GI report, please see the Provation report in Perceptive 7 content. By: 1154Medical Records Staff LUCILLE /MARILIN
--- NOTE | 2019-01-14 16:06 | PATH ---
[facility] [address] [place] [address] PATHOLOGY RPT PROCEDURE Name: GUTIERREZBEBE MARYJANE Room: [facility].Lrudes.#: [id number] Admission: 01/11/19 Date of : 62 Discharge: Report #: [id number] Path Case #: [id number] [facility] Accession Number: [id number] . 01 Material submitted: . PART A: esophagus - ESOPHAGEAL BIOPSIES HX BARRETTS PART B: stomach - GASTRIC BODY. Modifiers: body . 01 Clinical history: . Amezcua's esophagus, epigastric pain, nausea and vomiting . 02 Diagnosis: A. 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 - There is no evidence of dysplasia or malignancy. - See comment. . B. Gastric "gastric biopsy": - Mild chronic reactive gastropathy. - The immunoperoxidase stain for Helicobacter pylori is negative. LB/01/14/2019 . 02 Comment: This case is also reviewed by Dr. Lacy Lantigua. (SHA/db; 01/14/2019) . 02 Electronically signed: . Renzo Damon MD, Pathologist NPI- [id number] . 01 Gross description: . A. Received in formalin labeled "Bebe Stephens, esophageal biopsy Hx Amezcua's," and additionally labeled on the requisition as "biopsies," are 2 segments of birmingham soft tissue measuring 1.0 x 0.3 x 0.2 cm in aggregate dimensions and ranging from 0.5 to 0.6 cm in maximum dimension. The specimen is submitted entirely in cassette A1. . B. Received in formalin labeled "Bebe Stephens, gastric biopsy," are 2 segments of birmingham soft tissue measuring 1.1 x 0.4 x 0.3 cm in aggregate dimensions and ranging from 0.5 to 0.6 cm in maximum dimension. The specimen is submitted entirely in cassette B1. (TSD; 01/11/2019) TOB/TOB . 02 Pathologist provided ICD-10: K22.70, K21.0, K31.9 . [address] [place] [address] PATHOLOGY RPT PROCEDURE Name: BEBE STEPHENS MARYJANE Room: [facility].#: [id number] Admission: 01/11/19 Date of : 62 Discharge: Report #: [id number] Path Case #: [id number] CPT . 572682, [id number], [id number] Specimen Comment: A courtesy copy of this report has been sent to Specimen Comment: [phone], . Specimen Comment: Report sent to / DR ROJO Performed at: [address], [place], [place] [id number] MD Joni Conn MD Phone: [phone] Performed at: 02 [facility] [address], [place], [place] [id number] MD Felix Kan MD Phone: [phone]
== END | disposition home or self-care (01) ==
LOC: M.SUR 12-21 08:19
DX: K31.9 Disease of stomach and duodenum, unspecified (principal); K22.70 Barrett's esophagus without dysplasia; K44.9 Diaphragmatic hernia without obstruction or gangrene; K21.0 Gastro-esophageal reflux disease with esophagitis; I25.2 Old myocardial infarction; M79.7 Fibromyalgia; R53.82 Chronic fatigue, unspecified; Z79.899 Other long term (current) drug therapy; Z98.890 Other specified postprocedural states; Z79.82 Long term (current) use of aspirin; Z88.8 Allergy status to other drugs, medicaments and biological substances; Z96.652 Presence of left artificial knee joint

== ENCOUNTER → 2019-04-03 | Outpatient (CLI) | payer OTHER, SELFPAY ==
--- NOTE | 2019-04-04 14:01 | SLEEP ---
[address] [address] SLEEP STUDY REPORT Name: GUTIERREZLIDAEL FRANCISTH Room: [facility]#: [id number] Admission: 04/03/19 Attend Phys: Clair Garcia Discharge: Date of : 62 Report #: [id number] THIS REPORT FOR: //name// CC: Reji Garcia NP This study has been reviewed in its entirety by a board certified sleep specialist DATE OF SERVICE: 04/03/2019 SLEEP STUDY ATTENDING PHYSICIAN: Dr. Clair Garcia. The patient is 58 years old who weighs 295 pounds with a BMI of 42.3. The patient's Forest score was 14. The patient underwent split-night study performed at [facility]. During the night study, the patient spent 374 minutes in bed and slept for 298 minutes with a sleep efficiency of 80%. Sleep latency was 9.7 minutes with a REM latency of 144.5 minutes. Sleep architecture showed normal stage 1 and stage 2 sleep, increased slow wave and normal REM sleep. During the initial diagnostic portion of the study, the patient slept for 78 minutes. During that time, there were no obstructive, mixed, or central apneas, but there were 34 hypopneas. The patient's apnea-hypopnea index was 26 per hour. REM sleep was not seen during the diagnostic portion. Supine AHI was 26 per hour as well. EKG monitoring revealed an average heart rate of 71 beats per minute. No sustained arrhythmias observed. PLMS was seen at an index of 94 per hour and 7 per hour caused EEG arousals. Nocturnal oximetry study revealed an average oxygen saturation of 93% with the lowest of 87%. One minute was spent in saturation of less than 89%. The patient met the criteria for CPAP initiation. It was started at 5 cm water and titrated up to 10 cm of water. At the final pressure, the patient slept for 28.5 minutes. The entire time in supine sleep, but no REM sleep observed. The patient's AHI was 0 per hour and oxygen saturation remained at 94%. Even at lower pressure of 8 cm water, the patient had supine REM and AHI was still 1.[address] [address] SLEEP STUDY REPORT Name: GUTIERREZLIDA Room: [facility]#: [id number] Admission: 04/03/19 Attend Phys: Clair Garcia Discharge: Date of : 62 Report #: [id number] IMPRESSION: 1. Moderate sleep apnea-hypopnea syndrome at an AHI of 26 per hour. Absence of REM sleep during the diagnostic portion can underestimate the severity of sleep apnea. 2. No clinically significant nocturnal hypoxia. 3. Severe periodic limb movements. RECOMMENDATIONS: 1. CPAP at 10 cm water completely eliminated the patient's sleep apnea and should be used on a nightly basis. 2. Follow up in 4-6 weeks to assess compliance with CPAP and to document clinical improvement. 3. Weight loss is strongly advised. 4. 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 5. Cautioned regarding driving until symptoms of sleep apnea have resolved with the use of CPAP. 6. The patient should also be further evaluated for symptoms of restless legs during the day and if present, it can be treated with dopaminergic agonist agents. <ELECTRONICALLY SIGNED> By: Mic Loo MD 04/04/19 1401 0736 0814Aman Hany Loo MD /fernando
== END ==
LOC: M.SLEEPLAB 21:00
DX: G47.33 Obstructive sleep apnea (adult) (pediatric) (principal); G47.34 Idiopathic sleep related nonobstructive alveolar hypoventilation

== ENCOUNTER → 2019-12-31 | Outpatient (CLI) | payer MEDICARE, SELFPAY ==
[2019-12-31 07:53] LABS: CALCIUM 9.2 mg/dL (8.5-10.1); CREATININE 0.9 mg/dL (0.6-1.3); POTASSIUM 4.4 mmol/L (3.5-5.1)
[2019-12-31 07:57] LABS: ALBUMIN 4.1 g/dL (3.4-5.0); TOTAL BILIRUBIN 0.2 mg/dL (<0.1-1.0); TOTAL PROTEIN 7.1 g/dL (6.4-8.2)
== END ==
LOC: M.CT 12-18 08:00 → M.LAB 07:00 → M.CT 08:00
PROVIDERS: ATTEND Family Medicine
DX: N20.0 Calculus of kidney (principal); I25.10 Atherosclerotic heart disease of native coronary artery without angina pectoris; R10.11 Right upper quadrant pain; R91.1 Solitary pulmonary nodule; M43.16 Spondylolisthesis, lumbar region; M48.07 Spinal stenosis, lumbosacral region; I87.8 Other specified disorders of veins

== ENCOUNTER 2020-01-09 08:14 | Emergency (ER) | payer MEDICARE, SELFPAY ==
[~2020-01-09] VITALS: Ht 177.8 cm; Wt 133.4 kg
[2020-01-09 08:48] LABS: ABSOLUTE BASOPHILS 0.1 thou/uL (0.0-0.2); ABSOLUTE EOSINOPHILS 0.2 thou/uL (0.0-0.7); ABSOLUTE LYMPHOCYTES 2.3 thou/uL (0.8-5.3); ABSOLUTE MONOCYTES 0.5 thou/uL (0.0-1.2); BASOPHILS 0.8 %; EOSINOPHILS 2.3 %; HEMATOCRIT 38.2 % (37.0-47.0); HEMOGLOBIN 13.1 gm/dL (12.0-15.0); MCH 30.3 pg (26.0-34.0); MCHC 34.5 g/dL (28.0-37.0); MCV 87.8 fL (80.0-100.0); MONOCYTES 6.7 %; NUCLEATED RBCS 0 /100WBC; PLATELET COUNT* 315 thou/uL (150-400); POLYS 62.2 %; RBC 4.34 mil/uL (4.20-5.00); RDW-CV 14.7 % (10.5-14.5); WBC 8.1 thou/uL (4.0-11.0)
[2020-01-09 08:55] LABS: CALCIUM 9.6 mg/dL (8.5-10.1); POTASSIUM 3.5 mmol/L (3.5-5.1)
[2020-01-09 08:57] LABS: APTT 24.2 Seconds (25.0-31.3); PROTIME 10.4 Seconds (9.20-11.50)
[2020-01-09 08:59] LABS: ALBUMIN 4.2 g/dL (3.4-5.0); TOTAL BILIRUBIN 0.4 mg/dL (<0.1-1.0); TOTAL PROTEIN 7.4 g/dL (6.4-8.2)
[2020-01-09 09:19] LABS: URINE BILIRUBIN NEGATIVE (Negative); URINE BLOOD NEGATIVE (Negative); URINE CLARITY CLEAR; URINE COLOR YELLOW; URINE GLUCOSE-RANDOM NEGATIVE (Negative); URINE KETONES NEGATIVE (Negative); URINE LEUKOCYTES-REFLEX NEGATIVE (Negative); URINE NITRITE-REFLEX NEGATIVE (Negative); URINE PROTEIN NEGATIVE (Negative); URINE UROBILINOGEN 0.2 E.U./dl (0.2-1.0)
[2020-01-09 10:35] VITALS: BP 151/83
--- NOTE | 2020-01-09 17:37 | EKG ---
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1960 Requested By: Nicolas Harvey Order Number: [id number] MD: Jesus Alberto Villalpando Measurements Intervals Stevenson Rate: 84 P: 46 CT: 148 QRS: -3 QRSD: 93 T: 37 QT: 380 QTc: 450 Interpretive Statements Sinus rhythm Compared to ECG 08/18/2018 10:36:24 Sinus tachycardia no longer present ST (T wave) deviation no longer present Electronically Signed On 01-09-2020 17:37:40 CDT by Jesus Alberto Villalpando [email or web address] <ELECTRONICALLY SIGNED> By: Jesus Alberto Villalpando MD, FACC 01/09/20 1737 5 5 Jesus Alberto Villalpando MD, [facility] /EPI
== END 2020-01-09 10:35 | disposition home or self-care (01) ==
LOC: M.ERS 08:14
PROVIDERS: Family Medicine
DX: R55 Syncope and collapse (principal); R11.2 Nausea with vomiting, unspecified; K58.9 Irritable bowel syndrome, unspecified; M79.7 Fibromyalgia; G43.909 Migraine, unspecified, not intractable, without status migrainosus; G51.0 Bell's palsy; Z96.652 Presence of left artificial knee joint; Z88.6 Allergy status to analgesic agent

== ENCOUNTER → 2020-11-24 | Outpatient (CLI) | payer MEDICARE ==
[~2020-11-24] VITALS: Ht 177.8 cm; Wt 127.0 kg
[2020-11-24] VITALS (7 sets, daily range): BP systolic 125–179; BP diastolic 50–90
[~2020-11-24] MED LIST changes: -ANTIVERT25 MG PO; +CARVEDILOL12.5 MG PO; +COZAAR 25 MG TA25 M2 PO; +HYDROCHLOROTHIA25 M1 PO; +IPRAT-ALBUT 0.5-3 ML INH; +LIPITOR10 MG PO; +LOSARTAN POTAS100 MG PO; +NEURONTIN100 MG PO; +PROTONIX40 M4 PO
[2020-11-24 13:24] LABS: HEMATOCRIT 38.5 % (37.0-47.0); HEMOGLOBIN 12.9 gm/dL (12.0-15.0); MCH 29.5 pg (26.0-34.0); MCHC 33.6 g/dL (28.0-37.0); MCV 87.8 fL (80.0-100.0); MPV 7.8 fl. (7.2-11.1); RBC 4.38 mil/uL (4.20-5.00); RDW-CV 15.2 % (10.5-14.5); WBC 8.6 thou/uL (4.0-11.0)
[2020-11-24 13:33] LABS: APTT 23.2 Seconds (25.0-31.3); INR 0.9; PROTIME 10.1 Seconds (9.20-11.50)
[2020-11-24 13:35] LABS: ANION GAP 8 mmol/L (7-16); BUN 19 mg/dL (7-18); CALCIUM 10.4 mg/dL (8.5-10.1); CHLORIDE 102 mmol/L (98-107); CO2 30 mmol/L (21-32); CREATININE 0.8 mg/dL (0.6-1.3); GLUCOSE 104 mg/dL (70-99); SODIUM 140 mmol/L (136-145)
[2020-11-24 13:39] LABS: ALBUMIN 4.3 g/dL (3.4-5.0); ALKALINE PHOSPHATASE 76 U/L (46-116); CHOLESTEROL 255 mg/dL (<200); HDL CHOLESTEROL 61 mg/dL (>40); LDL CHOLESTEROL 148 mg/dL (<100); SGOT 40 U/L (15-37); SGPT 70 U/L (30-65); TC:HDL 4.2 Ratio (Not establshd); TOTAL BILIRUBIN 0.2 mg/dL (<0.1-1.0); TOTAL PROTEIN 7.9 g/dL (6.4-8.2); TRIGLYCERIDE 233 mg/dL (<150); VLDL 47 mg/dL (<40)
[2020-11-24 13:41] LABS: SERUM ASSESSMENT Clear
--- NOTE | 2020-11-24 14:11 | EKG ---
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
--- NOTE | 2020-11-29 14:34 | CARD ---
[address] [address] CARDIAC CATH REPORT Name: LIDA WHITLEY Room: [facility]#: [id number] Admission: 11/24/20 Attend Phys: Jesus Alberto Villalpando MD Discharge: Date of : 62 Report #: [id number] THIS REPORT FOR: cc: Reji Franco MD, Bruce D. MD Liston, Michael J. MD [facility] ~ APPROVED REPORT Study performed: 11/24/2020 14:15:27 Patient Details Patient Status: Out-Patient Room #: The patient is a 60 year-old female Event Personnel Jesus Alberto Villalpando Drawbench Operator, Kristi Torres RN RN, Gaston Springer RTR Scrub, Mable Garvey RTR Monitor Procedures Performed Art Access - R femoral artery Left Heart Cath w/or w/o Coronaries Hemostasis w/ Mynx Admission/Lab Medications/Medications given during procedure Lidocaine Subcut 14 ml, Oxygen Nasal cannula 2 l per min, 0.9% Sodium Chloride IV 75 ml per hr Procedure Narrative The patient was brought electively to the Cardiac Catheterization Laboratory and was prepped and draped in a sterile manner. The right femoral was infiltrated with 2% Lidocaine subcutaneous anesthesia. IV conscious sedation was used throughout procedure with appropriate monitoring and was performed in the presence of a registered nurse who was an independent trained observer other than the physician performing the procedure. A [place]bron 6 FR sheath was inserted into the right femoral artery. Coronary angiography was performed using coronary diagnostic catheters. The right coronary system was accessed and visualized with a Diagnostic 6 Fr JR 4 catheter. The left coronary system was accessed and visualized with a Diagnostic 6 Fr JL 4 catheter. The left ventricle was accessed and visualized with a Diagnostic 6 Fr Pigtail catheter. Left ventricular/Aortic Valve gradient assessed via catheter pullback. Left ventriculogram was performed in GARZA projection. Pre-demployment femoral angiogram was performed . Closure device was deployed with a Fr Mynx 6Fr/7[place] [address] CARDIAC CATH REPORT Name: LIDA WHITLEY Room: [facility]#: [id number] Admission: 11/24/20 Attend Phys: Jesus Alberto Villalpando MD Discharge: Date of : 62 Report #: [id number] patient tolerated the procedure well and there were no complications associated with the procedure. There was no hematoma. Intraoperative Conscious Sedation Sedation start time: 1439 Case end Time: 1449 Fentanyl 25 mcg Versed 1 mg Fluoro Time: 1.8 minutes Dose: DAP 67835 cGycm2 1280 mGy Contrast Type and Amount: Visipaque 95 ml Diagnostic Cath Left Main Left main coronary artery appears normal. LAD The proximal LAD appears mildly ectatic. The remainder the vessel is free of significant disease. Diagonal 1 A small first diagonal branch appears normal. Diagonal 2 A small second diagonal branch appears normal. Circumflex The circumflex coronary artery appears ectatic in its proximal and midportion. OM1 A large branch first obtuse marginal branch is mildly ectatic proximally. OM2 A second obtuse marginal branch is normal. Right Coronary The right coronary artery appears possibly mildly ectatic free of significant stenoses. R PDA The right PDA is normal. RPLV The right posterior lateral LV branch appears normal. Left Ventriculography The left ventricle is normal in size with normal contractility. The left ventricular ejection fraction is estimated to be 65-70%. Left ventricular wall motion abnormalities are not present. Hemodynamics The aortic pressure is 144/82 mmHg with a mean of 75 mmHg. The left ventricular pressure is 158/16 mmHg with a mean of mmHg. The left ventricular end diastolic pressure is 20 mmHg. Conclusion 1. Mild coronary ectasia without significant stenoses. 2. Normal left ventricular systolic function. 3. Mildly elevated left ventricular end-diastolic pressure consistent with acute [place] [address] CARDIAC CATH REPORT Name: LIDA WHITLEY Room: [facility]#: [id number] Admission: 11/24/20 Attend Phys: Jesus Alberto Villalpando MD Discharge: Date of : 62 Report #: [id number] Recommendations 1. Continue aggressive risk factor modification and medical management. <ELECTRONICALLY SIGNED> By: Jesus Alberto Villalpando MD, [facility] 11/29/20 [address] [place], [place] [address]robbin Villalpando MD, [facility]INF
== END | disposition home or self-care (01) ==
LOC: M.CL 11:19
PROVIDERS: ATTEND Internal Medicine Cardiovascular Disease
DX: R07.9 Chest pain, unspecified (principal); I25.41 Coronary artery aneurysm; I50.1 Left ventricular failure, unspecified; G43.909 Migraine, unspecified, not intractable, without status migrainosus; R53.82 Chronic fatigue, unspecified; M79.7 Fibromyalgia; Z96.652 Presence of left artificial knee joint; Z98.890 Other specified postprocedural states; Z79.899 Other long term (current) drug therapy